=== PATIENT | female | born 1960 | race Caucasian/White ===

== ENCOUNTER 2018-09-19 16:05 | Inpatient (IN) ==
[2018-09-19] MEDS ORDERED: MORPHINE 4 MG/1 ML VIAL ONE (17:21)
[2018-09-19] MEDS ORDERED: ONDANSETRON 4 MG/2 ML VIAL ONE (17:21)
[2018-09-19] MEDS ORDERED: ONDANSETRON 4 MG/2 ML VIAL IV STA (17:40)
[2018-09-19] MEDS ORDERED: SODIUM CHLORIDE 0.9% 1,000 ML IV STA (17:40)
[2018-09-19] MEDS ORDERED: MORPHINE 4 MG/1 ML VIAL IV STA ×2 (17:40→18:23)
[2018-09-19 17:49] LABS: Basophils % 0.4 % (0.0-0.8); Eosinophils % 0.4 % (0.00-10.9); Hemoglobin 14.1 GM/DL (12.0-16.0); Immature Granulocytes % 0.9 %; Immature Granulocytes Absolute 0.09 #; Mean Corpuscular HGB Conc 33.6 GM/DL (32-36); Mean Corpuscular Volume 87.5 FL (87-102); Mean Platelet Volume 10.2 FL (9.6-12.0); Monocytes % 7.1 % (1.7-12.7); Neutrophils % 81.2 % (38.7-73.9); Platelet Count 284 T/CUMM (130-400); Red Cell Distribution Width 12.1 % (9.3-17.3); White Blood Count 10.3 T/CUMM (4-12)
[2018-09-19 18:03] LABS: Albumin 4.9 G/DL (3.4-5.0); Bilirubin,Total 0.4 MG/DL (0.2-1.0); Calcium 9.7 MG/DL (8.5-10.1)
[2018-09-19] MEDS ORDERED: MAGNESIUM HYDROXIDE SUSP 30 ML UDCUP PO PRN (19:21)
[2018-09-19] MEDS ORDERED: MORPHINE 4 MG/1 ML VIAL IV PRN (19:21)
[2018-09-19] MEDS ORDERED: ONDANSETRON 4 MG/2 ML VIAL IV PRN ×2 (19:21→21:35)
[2018-09-19] MEDS ORDERED: DEXTROSE 5% NACL 0.45% 1,000 ML IV SCH (19:30)
[2018-09-19] MEDS: DEXTROSE 5% NACL 0.45% 1,000 ML IV SCH (21:46)
[2018-09-19] MEDS: MORPHINE 4 MG/1 ML VIAL IV PRN (21:51)
[2018-09-20] MEDS: MORPHINE 4 MG/1 ML VIAL IV PRN ×3 (01:34→14:17)
[2018-09-20] MEDS: DEXTROSE 5% NACL 0.45% 1,000 ML IV SCH ×2 (07:47→21:40)
[2018-09-20] MEDS ORDERED: ceFAZolin 1,000 MG VIAL ONE (11:19)
[2018-09-20] MEDS ORDERED: PROPOFOL 200 MG/20 ML VIAL IV ONE (12:34)
[2018-09-20] MEDS ORDERED: MIDAZOLAM 2 MG/2 ML VIAL ONE (12:35)
[2018-09-20] MEDS ORDERED: fentaNYL 100 MCG/2 ML VIAL ONE (12:35)
[2018-09-20] MEDS ORDERED: PHENYLEPHRINE 1 MG/10 ML SYRINGE IV ONE (12:35)
[2018-09-20] MEDS ORDERED: BUPIVACAINE SPINAL 0.75% 2 ML AMP SPINAL ONE (12:36)
[2018-09-20] MEDS ORDERED: BUPIVACAINE 0.5% 50 ML VIAL ONE (12:36)
[2018-09-21] MEDS: MULTIVITAMIN (CENTRUM) TABLET PO SCH (08:01)
[2018-09-21] MEDS: APIXABAN 2.5 MG TABLET PO SCH ×3 (08:02→20:33)
[2018-09-21] MEDS: DEXTROSE 5% NACL 0.45% 1,000 ML IV SCH ×2 (08:07→18:06)
[2018-09-21] MEDS: DILTIAZEM CD 120 MG CAPSULE PO SCH (08:30)
[2018-09-22] MEDS: DEXTROSE 5% NACL 0.45% 1,000 ML IV SCH (03:57)
[2018-09-22] MEDS: APIXABAN 2.5 MG TABLET PO SCH (08:59)
[2018-09-22] MEDS: DILTIAZEM CD 120 MG CAPSULE PO SCH (08:59)
[2018-09-22] MEDS: MULTIVITAMIN (CENTRUM) TABLET PO SCH (09:00)
[2018-09-22 11:19] VITALS: BP 116/61
== END 2018-09-22 13:40 | disposition home or self-care (01) | DRG 482 ==
LOC: N.EDINP 16:05 → N.ED 16:05 → N.3E 19:34 → UNDODISOB 09-22 13:40
PROVIDERS: ADMIT Orthopaedic Surgery; ATTEND Orthopaedic Surgery